=== PATIENT | female | born 1985 | race American Indian/Alaskan Native ===

== ENCOUNTER 2020-01-23 17:28 | Emergency (ER) | payer SELFPAY ==
[2020-01-23 17:53] VITALS: BP 124/77
--- NOTE | 2020-01-23 18:26 | Emergency Department Report ---
Chief Complaint: Anxiety Stated Complaint: ANXIETY ATTACK Time Seen by Provider: 01/23/20 18:22 - HPI History of Present Illness: 34-year-old -[place] female presents to the emergency room brought in by [facility] reporting that she had a panic attack. Patient states that she suffers some anxiety and what is set her office had a brother yesterday in [place] and her boyfriend broke up with her. Patient denies any suicidal homicidal ideation. Patient denies any chest pain shortness of breathing headache. - Exam Vital Signs: Vital Signs 01/23/20 17:48 Temperature 98.6 F Pulse Rate 97 H Respiratory 18 Rate Blood Pressure 124/77 O2 Sat by Pulse 98 Oximetry Physical Exam: Gen: alert oriented NAD patient is tearful Cardic: regular rate and rhythm no murmurs appreciated Resp: Clear to auscultation bilateral no wheezing no rales or rhonchi. MSE screening note: Focused history and physical exam performed. Due to findings the following was ordered: 34-year-old -[place] female presents to the emergency room brought in by [facility] reporting that she had a panic attack. Patient states that she suffers some anxiety and what is set her office had a brother yesterday in [place] and her boyfriend broke up with her. Patient denies any suicidal homicidal ideation. Patient denies any chest pain shortness of breathing headache. Patient will be given Atarax 25 mg p.o. Patient will be referred to [facility]. ED Medical Decision Making - Medical Decision Making 34-year-old -[place] female presents to the emergency room brought in by [facility] reporting that she had a panic attack. Patient states that she suffers some anxiety and what is set her office had a brother yesterday in [place] and her boyfriend broke up with her. Patient denies any suicidal homicidal ideation. Patient will be given referral to [facility]. Patient was given Atarax p.o. now 25 mg. ED Disposition for MSE Clinical Impression: Anxiety, Panic attack Disposition: DC-01 TO HOME OR SELFCARE Is pt being admited?: No Does the pt Need Aspirin: No Condition: Stable Instructions: Anxiety (ED) Additional Instructions: Please follow-up with her mental health provider or primary care provider. Referrals: [facility] [Outside] - 3[facility] Days [facility]
[2020-01-23] MEDS ORDERED: hydrOXYzine HCL 25 MG TAB PO ONE (19:00)
== END 2020-01-23 18:58 | disposition home or self-care (01) ==
LOC: ED 17:28
DX: F41.9 Anxiety disorder, unspecified (principal); F41.0 Panic disorder [episodic paroxysmal anxiety]; Z98.890 Other specified postprocedural states
CPT/HCPCS: 99283